=== PATIENT | male | born 1980 | race Caucasian/White ===

== ENCOUNTER 2018-11-11 22:33 | Emergency (ER) | payer SELFPAY ==
[~2018-11-11] VITALS: Wt 77.8 kg
[2018-11-11 22:45] VITALS: BP 141/92; PULSE 85; RESP 20
== END 2018-11-11 23:15 | disposition left against medical advice (07) ==
LOC: E/R 22:33
DX: Z53.21 Procedure and treatment not carried out due to patient leaving prior to being seen by health care provider (principal)
CPT/HCPCS: 82962